=== PATIENT | female | born 2000 | race Caucasian/White ===

== ENCOUNTER 2022-12-19 05:16 | Inpatient (IN) ==
[2022-12-19] MEDS ORDERED: OXYTOCIN 30 UNITS/500 ML BAG IV PRN (11:03)
[2022-12-19] MEDS ORDERED: HYDROCORTISONE ACETATE 25 MG SUPP PR PRN (11:03)
[2022-12-19] MEDS ORDERED: ACETAMINOPHEN 325 MG TAB PO PRN (11:03)
[2022-12-19] MEDS ORDERED: BENZOCAINE 20% AER SPR 82.5 GM CAN EXT PRN (11:03)
[2022-12-19] MEDS ORDERED: MEASLES, MUMPS & RUBELLA VIRUS VIAL SQ ONE (11:03)
[2022-12-19] MEDS ORDERED: bisacodyL 10 MG SUPP PR PRN (11:03)
[2022-12-19] MEDS ORDERED: DIPHTHERIA/TETANUS/PERTUSSIS 0.5mL SYR/VIAL (Age 7+yrs) IM ONE (11:03)
[2022-12-19] MEDS ORDERED: FLUoxetine HCL 20 MG CAP PO SCH (11:30)
--- NOTE | 2022-12-19 11:32 | History & Physical Report ---
Date of Service December 19, 2022 Assessment & Plan (1) state: Plan: 22-year-old -0-1-2 who is status post vaginal delivery at [facility] in [facility] this morning at 3:32 AM, Brought up here in ambulance with labor and delivery nurse, Vital signs stable afebrile, Vaginal bleeding is minimal, Minimal first-degree vaginal laceration which was repaired by ER physician, Placenta complete intact, confirmed no retained placenta by bedside ultrasound, Plan to admit, monitor, labs, care here with medications as needed, All questions were answered. (2) Status post delivery at term: (3) Marijuana use: (4) Tobacco smoking affecting : Admission and Anticipated Discharge Date Admission Date: December 19, 2022 History of Present Illness Primary Care Provider: NO PCP Patient is a 22-year-old -0-1-2 female who has delivered a viable male infant at 0 3:33 AM this morning at [facility] in [facility]. Patient is alert in the ER since they did not have labor and delivery/OB services there. However labor and delivery was called to go and bring her here for care. She was brought in an ambulance with one of our labor and delivery nurses Yolanda Codne RN. She feels well no complaints other than mild soreness. Placenta was delivered soon after delivery of infant and brought in plastic Container. I examined the placenta it looks complete and intact. Her bleeding has been minimal. She denies fever, chills, headaches, change in her vision. Her was complicated by, 1. Anxiety during , on Prozac and BuSpar and medical marijuana, 2. GBS positive 3. Anemia during , 4. Smoker, vaping tobacco Allergies Allergy/AdvReac Type Severity Reaction Status Date / Time No Known Allergies Allergy Unverified 12/19/22 11:04 Home Medications Medication Instructions Recorded Confirmed Type buspirone 15 mg tablet 15 mg PO DAILY 12/19/22 12/19/22 History fluoxetine 10 mg tablet 10 mg PO DAILY 12/19/22 12/19/22 History Patient History Medical History (Updated 12/19/22 @ 11:30 by Blair Chadwick MD) Anemia Anxiety and depression has had since childhood Surgical History [place] teeth removed Family History Mother Heart failure Social History Smoking Status: Current every day smoker Tobacco Type: E-cigarettes / Vaping Age Started Using Tobacco: 18; Hx Alcohol Use: No Hx Substance Use: Yes Prescribed Medications: Marijuana Prescribed Medications Comment: has medical marijuana card Last Used Substance: Days (ago) Last Used Substance Other:: Last used Sunday Preferred Language: Maori Communication Ability: Effective Visual Impairment: No Limitations Hearing Ability: Normal [employer] Dive Training Instructor Required: No Beliefs That Will Affect Care: None marital status: Single Current Living Situation: Alone current occupational status: employed current occupation: Sales at [employer] Other Information That Helps Us Care for You: No Feels Safe at Home: Yes Safety Concerns: Feels Safe At This Time Childhood Exposure to Second-Hand Smoke: Yes Dental Care, Regularly: Yes Physical Activity Frequency: Does not Exercise Seatbelt Use: sometimes Sunscreen Use: No Do you think of yourself as: straight/heterosexual Sexual Activity: has been sexually active within the last 12 months Gender Identity: Female OB History Full-term 2019, spontaneous in the past Review of Systems as per Subjective / HPI Physical Exam Constitutional: WD/WN, vitals as above well developed, well nourished and comfortable Gastrointestinal (Abdomen): normal bowel sounds, soft, nontender, no hepatosplenomegaly (Fundus firm, below U mucous) Genitourinary: normal external appearance (Small first-degree laceration at time and at 7 o'clock position, sutured by) ER physician, intact 1 stitch is visible, no bleeding, Rest of the vagina and perineum were intact Lochia minimal Bedside ultrasound is done by myself, uterus is empty, endometrium is thin and regular, there is a blood clot about 6 x 6 cm in lower uterine segment/cervix, I offered manual removal but patient declined she desires to pass by herself Results & Data Vital Signs (Past 12 Hours) Vital Signs Pulse BP 12/19/22 10:53 65 132/81
[2022-12-19 12:38] LABS: Hematocrit (blood only) 32.9 % (37.0-47.0); Hemoglobin 10.8 g/dl (12.0-16.0); Mean Corpuscular Hemoglobin 28.7 pg (25.0-34.0); Mean Corpuscular Hgb Conc 32.8 g/dL (32.0-36.0); Mean Corpuscular Volume 87.5 fL (80.0-100.0); Mean Platelet Volume 13.3 fL (9.4-12.4); Platelet Count 153 K/uL (130-400); RDW Coefficient of Variation 23.3 % (11.5-14.5); RDW Standard Deviation 68.4 fL (36.4-46.3); Red Blood Count 3.76 M/uL (4.20-5.40); White Blood Count 18.13 K/ul (4.8-10.8)
[2022-12-19] MEDS: PRENATAL VITAMIN 1 TAB PO SCH (12:42)
[2022-12-19] MEDS: busPIRone 7.5 MG TAB PO SCH ×2 (12:42→20:32)
[2022-12-19] MEDS: FERROUS SULFATE 325 MG TAB PO SCH (12:42)
[2022-12-19] MEDS: FLUoxetine HCL 10 MG CAP PO SCH (12:43)
[2022-12-19 12:50] LABS: Anisocytosis Present; Basophils # (auto) 0.03 K/uL (0-0.2); Basophils % (auto) 0.2 %; Eosinophils # (auto) 0.01 K/uL (0-0.50); Eosinophils % (auto) 0.1 %; Immature Granulocytes # (auto) 0.17 K/uL (0.01-0.20); Immature Granulocytes % (auto) 0.9 %; Lymphocytes # (auto) 1.64 K/uL (1.2-3.4); Monocytes # (auto) 0.47 K/uL (0.11-0.59); Monocytes % (auto) 2.6 %; Neutrophils # (auto) 15.81 K/uL (1.40-6.50); Neutrophils % (auto) 87.2 %
[2022-12-19 14:34] LABS: Amphetamines+Metham, Urine Neg (Neg); Barbiturates, Urine Neg (Neg); Benzodiazepine, Urine Neg (Neg); Cocaine, Urine Neg (Neg); MDMA (Ecstacy), Urine Neg (Neg); Methadone, Urine Neg (Neg); Opiate, Urine Neg (Neg); Phencyclidine, Urine Neg (Neg)
[2022-12-19] MEDS: DOCUSATE SODIUM 100 MG CAP PO SCH (20:33)
[2022-12-19] MEDS: IBUPROFEN 600 MG TAB PO PRN (23:11)
[2022-12-20 06:50] LABS: Hematocrit (blood only) 30.4 % (37.0-47.0); Hemoglobin 9.8 g/dl (12.0-16.0); Mean Corpuscular Hemoglobin 28.7 pg (25.0-34.0); Mean Corpuscular Hgb Conc 32.2 g/dL (32.0-36.0); Mean Corpuscular Volume 88.9 fL (80.0-100.0); Mean Platelet Volume 12.9 fL (9.4-12.4); Platelet Count 159 K/uL (130-400); RDW Coefficient of Variation 23.9 % (11.5-14.5); RDW Standard Deviation 72.4 fL (36.4-46.3); Red Blood Count 3.42 M/uL (4.20-5.40); White Blood Count 13.18 K/ul (4.8-10.8)
[2022-12-20] MEDS: IBUPROFEN 600 MG TAB PO PRN (07:39)
[2022-12-20] MEDS: FERROUS SULFATE 325 MG TAB PO SCH (07:39)
[2022-12-20] MEDS: PRENATAL VITAMIN 1 TAB PO SCH (07:39)
[2022-12-20] MEDS: DOCUSATE SODIUM 100 MG CAP PO SCH (07:39)
[2022-12-20] MEDS ORDERED: FERROUS SULFATE 325 MG TAB PO SCH (08:00)
[2022-12-20] MEDS ORDERED: PRENATAL VITAMIN 1 TAB PO SCH (08:00)
--- NOTE | 2022-12-20 08:43 | Obstetrical Progress Note ---
Date of Service December 20, 2022 Assessment & Plan (1) Status post delivery at term: Doing well, continue routine care We will place discharge if baby is sent home today Follow-up in clinic Subjective Ambulation: ambulating normally Voiding: no voiding problems Passing Gas:: Yes Diet Tolerance:: regular diet Lochia:: Small Feeding Type:: bottle feeding Current Pain Level(1-10): 1 Doing well, no complaints at this time. Would like to go home today if baby is discharged Physical Exam Constitutional WD/WN, vitals as above Respiratory normal respiratory effort, lungs clear to auscultation Cardiovascular RRR, no murmur, no edema Gastrointestinal (Abdomen) normal bowel sounds, soft, nontender, no hepatosplenomegaly Results & Data Vital Signs (Past 12 Hours) Vital Signs Temp Pulse Resp BP O2 Del Method 12/20/22 03:32 36.7 C 59 L 16 128/74 Room Air 12/19/22 23:06 36.8 C 75 16 133/71 Room Air Laboratory Results Laboratory Results WBC 13.18 K/ul (4.8-10.8) H 12/20/22 06:02 RBC 3.42 M/uL (4.20-5.40) L 12/20/22 06:02 Hgb 9.8 g/dl (12.0-16.0) L 12/20/22 06:02 Hct 30.4 % (37.0-47.0) L 12/20/22 06:02 MCV 88.9 fL (80.0-100.0) 12/20/22 06:02 MCH 28.7 pg (25.0-34.0) 12/20/22 06:02 MCHC 32.2 g/dL (32.0-36.0) 12/20/22 06:02 RDW Std Deviation 72.4 fL (36.4-46.3) H 12/20/22 06:02 RDW Coeff of Cony 23.9 % (11.5-14.5) H 12/20/22 06:02 Plt Count 159 K/uL (130-400) 12/20/22 06:02 MPV 12.9 fL (9.4-12.4) H 12/20/22 06:02 Immature Gran % (Auto) 0.9 % 12/19/22 12:10 Neut % (Auto) 87.2 % 12/19/22 12:10 Lymph % (Auto) 9.0 % 12/19/22 12:10 [place] % (Auto) 2.6 % 12/19/22 12:10 Eos % (Auto) 0.1 % 12/19/22 12:10 Baso % (Auto) 0.2 % 12/19/22 12:10 Neut # (Auto) 15.81 K/uL (1.40-6.50) H 12/19/22 12:10 Lymph # (Auto) 1.64 K/uL (1.2-3.4) 12/19/22 12:10 [place] # (Auto) 0.47 K/uL (0.11-0.59) 12/19/22 12:10 Eos # (Auto) 0.01 K/uL (0-0.50) 12/19/22 12:10 Baso # (Auto) 0.03 K/uL (0-0.2) 12/19/22 12:10 Immature Gran # (Auto) 0.17 K/uL (0.01-0.20) 12/19/22 12:10 Anisocytosis Present 12/19/22 12:10 Urine Opiates Screen Neg (Neg) 12/19/22 Unknown Ur Methadone, Qual Neg (Neg) 12/19/22 Unknown Urine Barbiturates Neg (Neg) 12/19/22 Unknown Ur Phencyclidine (PCP) Neg (Neg) 12/19/22 Unknown U Amphetamin/Meth Scrn Neg (Neg) 12/19/22 Unknown MDMA (Ecstasy) Screen Neg (Neg) 12/19/22 Unknown U Benzodiazepines Scrn Neg (Neg) 12/19/22 Unknown Ur Cocaine Metabolite Neg (Neg) 12/19/22 Unknown U Marijuana (THC) Screen Pos (Neg) H 12/19/22 Unknown
[2022-12-20] MEDS: FLUoxetine HCL 10 MG CAP PO SCH (09:04)
[2022-12-20] MEDS: busPIRone 7.5 MG TAB PO SCH (09:04)
[2022-12-20] MEDS ORDERED: bisacodyL 5 MG TABEC PO SCH (20:00)
[2022-12-22 11:02] LABS: Marijuana Quant, GCMS Urine 1414 ng/mL (<5)
--- NOTE | 2022-12-28 09:01 | Discharge Summary ---
Date of Service December 28, 2022 Admission HPI Per Admitting Provider Patient is a 22-year-old -0-1-2 female who has delivered a viable male infant at 0 3:33 AM this morning at [facility] in [facility]. Patient is alert in the ER since they did not have labor and delivery/OB services there. However labor and delivery was called to go and bring her here for care. She was brought in an ambulance with one of our labor and delivery nurses Yolanda Conde RN. She feels well no complaints other than mild soreness. Placenta was delivered soon after delivery of infant and brought in plastic Container. I examined the placenta it looks complete and intact. Her bleeding has been minimal. She denies fever, chills, headaches, change in her vision. Her was complicated by, 1. Anxiety during , on Prozac and BuSpar and medical marijuana, 2. GBS positive 3. Anemia during , 4. Smoker, vaping tobacco Admission Exam (Per Admitting) Constitutional WD/WN, vitals as above Respiratory normal respiratory effort, lungs clear to auscultation Cardiovascular RRR, no murmur, no edema Gastrointestinal (Abdomen) normal bowel sounds, soft, nontender, no hepatosplenomegaly Hospital Course (1) Status post delivery at term: Doing well, continue routine care We will place discharge if baby is sent home today Follow-up in clinic
== END 2022-12-20 15:00 | disposition home or self-care (01) | DRG 776 ==
LOC: 4S1 10:48 → 4E2 13:20